=== PATIENT | female | born 1995 | race Caucasian/White ===

== ENCOUNTER 2018-01-21 20:57 | Observation (INO) | payer OTHER ==
[2018-01-21 21:52] VITALS: BP 133/78; PULSE 86
[2018-01-21 21:55] LABS: Amphetamine,Urine NEGATIVE (NEGATIVE); Barbiturate,Urine NEGATIVE (NEGATIVE); Benzodiazepine,Urine NEGATIVE (NEGATIVE); Cocaine,Urine NEGATIVE (NEGATIVE); Methadone,Urine NEGATIVE (NEGATIVE); Opiate,Urine NEGATIVE (NEGATIVE); PCP,Urine NEGATIVE (NEGATIVE); THC,Urine NEGATIVE (NEGATIVE)
== END 2018-01-21 23:00 | disposition home or self-care (01) ==
LOC: OB 20:57
PROVIDERS: ADMIT Family Medicine; ATTEND Family Medicine
DX: Z34.83 Encounter for supervision of other normal pregnancy, third trimester (principal)
CPT/HCPCS: 80307; G0378

== ENCOUNTER 2018-02-11 22:39 | Observation (INO) | payer OTHER ==
[2018-02-11 23:07] VITALS: BP 137/84; PULSE 83
== END 2018-02-12 00:15 | disposition home or self-care (01) ==
LOC: MED SURG 22:39
PROVIDERS: ADMIT Family Medicine; ATTEND Family Medicine
DX: Z34.83 Encounter for supervision of other normal pregnancy, third trimester (principal)
CPT/HCPCS: G0378 ×3

== ENCOUNTER 2019-02-09 17:44 | Observation (INO) | payer MEDICAID, OTHER ==
[2019-02-09] MEDS ORDERED: solu-MEDROL 125 MG IV ONE (18:00)
[2019-02-09] MEDS ORDERED: DUONEB 0.5-3 MG/3 ml Neb IH ONE ×2 (18:00→18:23)
--- NOTE | 2019-02-09 18:02 | ERPHSYRPT ---
- History of Present Illness Time Seen by Provider: 02/09/19 17:56 Source: patient Exam Limitations: physical impairment Patient Subjective Stated Complaint: Pt states "It started yesterday with sneezing and today it feels like my chest wants to cave in and I am short of breath." Triage Nursing Assessment: Pt presented via [facility] ambulance, pt alert and oriented X 3, skin pwd. Pt able to speak in clear full sentences. Physician History: 23-year-old white female arrives with complaint of shortness of breath wheezing since yesterday. Past medical history includes migraines, asthma, GERD, arthritis, anxiety, depression. Timing/Duration: yesterday Severity: moderate Associated Symptoms: shortness of breath, cough, No nausea, No vomiting, No abdominal pain, No heartburn, No diaphoresis, No chills, No chest pain, No fever , No headaches, No loss of appetite, No malaise, No rash, No syncope, No seizure , No weakness Allergies/Adverse Reactions: No Known Drug Allergies Allergy (Verified 01/21/18 21:53) Home Medications: Acetaminophen [Tylenol] 1 tab PO DAILY 01/21/18 [History] Albuterol Sulfate [Ventolin Hfa] 2 inhaler PO Q12H PRN PRN 01/21/18 [History] Diphenhydramine HCl [Benadryl Allergy] 1 tab PO DAILY PRN 01/21/18 [History] Hx Tetanus, Diphtheria Vaccination/Date Given: No Hx Influenza Vaccination/Date Given: Yes Hx Pneumococcal Vaccination/Date Given: No Immunizations Up to Date: Yes - Past Medical History Pertinent Past Medical History: Yes Neurological History: Migraines ENT History: No Pertinent History Cardiac History: No Pertinent History Respiratory History: Asthma Endocrine Medical History: No Pertinent History Musculoskeletal History: Arthritis GI Medical History: GERD History: No Pertinent History Psycho-Social History: Anxiety, Depression Female Reproductive Disorders: No Pertinent History - Past Surgical History Past Surgical History: No - Social History Smoking Status: Never smoker Exposure to second hand smoke: Yes Drug Use: none Patient Lives Alone: No - Female History Hx Last Menstrual Period: 01/20/2019 Hx Now: (unknown) - Nursing Vital Signs Nursing Vital Signs: Initial Vital Signs Temperature 98.3 F 02/09/19 17:46 Pulse Rate 132 H 02/09/19 17:46 Respiratory Rate 20 02/09/19 17:46 Blood Pressure 159/95 02/09/19 17:46 O2 Sat by Pulse Oximetry 92 L 02/09/19 17:46 Pain Scale Pain Intensity 9 - Physical Exam General Appearance: mild distress, alert Eye Exam: PERRL/EOMI, eyes nml inspection Ears, Nose, Throat Exam: normal ENT inspection, TMs normal, pharynx normal, moist mucous membranes Neck Exam: normal inspection, non-tender, supple, full range of motion Respiratory Exam: airway intact, diminished breath sounds, wheezing, No lungs clear Cardiovascular Exam: regular rate/rhythm, tachycardia, capillary refill <2 sec Gastrointestinal/Abdomen Exam: soft, normal bowel sounds, No tenderness, No mass Back Exam: normal inspection, normal range of motion, No CVA tenderness, No vertebral tenderness Extremity Exam: normal inspection, normal range of motion, pelvis stable Neurologic Exam: alert, oriented x 3, cooperative, drop wirer II-XII nml as tested, normal mood/affect, nml cerebellar function, nml station & gait, sensation nml, No motor deficits Skin Exam: normal color, warm, dry, No rash SpO2 Interpretation: normal (92%) SpO2: 92 - Course Nursing assessment & vital signs reviewed: Yes Ordered Tests: Active Orders 24 hr Category Date Time Status Up Ad Jasmin ROUTINE Activity 02/09/19 21:28 Active Call Admit Doctor for Orders ON ADMISSION Care 02/09/19 21:28 Active Code Status Order ROUTINE Care 02/09/19 21:28 Active IV Care Q6H Care 02/09/19 21:28 Active IV Insertion STAT Care 02/09/19 18:[address] in Observation ROUTINE Care 02/09/19 21:28 Active Telemetry q6h Care 02/09/19 21:28 Active Weight,Daily 0600 Care 02/09/19 21:28 Active Regular Diet Diet 02/09/19 Breakfast Active CBC W DIFF AM.LAB Lab 02/10/19 05:40 Completed CBC W DIFF Stat Lab 02/09/19 18:20 Completed CMP AM.LAB Lab 02/10/19 05:40 Completed CMP Stat Lab 02/09/19 18:20 Completed HCG QUALITATIVE,SERUM Stat Lab 02/09/19 18:20 Completed VENOUS BLOOD GAS Stat Lab 02/09/19 18:25 Completed Oxygen Nasal Cannula 2 lpm RT 02/09/19 21:28 Active Pulse Oximetry Q1H RT 02/09/19 21:28 Active Respiratory Therapy Assessment DAILY RT 02/09/19 18:30 Completed Respiratory Therapy Consult ROUTINE RT 02/09/19 21:28 Completed Medication Summary Generic Name Dose Route Start Last Admin Trade Name Aixa PRN Reason Stop Dose Admin Albuterol Sulfate 2.5 mg 02/09/19 21:28 02/10/19 04:56 Proventil 2.5 Mg/3 Ml Neb IH 03/11/19 21:27 2.5 mg Q4H PRN PRN Administration SHORTNESS OF BREATH/WHEEZING Ceftriaxone Sodium/Dextrose 1 g in 50 mls @ 100 mls/hr 02/10/19 22:00 Rocephin 1 Gm-D5w 50 Ml Bag IV 03/12/19 21:59 Q24H22 TEE Sodium Chloride 1,000 mls @ 100 mls/hr 02/09/19 21:28 02/10/19 05:45 Sodium Chloride 0.9% 1000 Ml IV 03/11/19 21:27 100 mls/hr .Q10H TEE Administration Azithromycin 500 mg in 250 mls @ 250 mls/hr 02/10/19 22:00 Zithromax 500 Mg/ 250 Ml Nacl Premix IV 03/12/19 21:59 Q24H22 TEE Methylprednisolone Sodium Succinate 80 mg 02/10/19 00:00 02/10/19 05:45 Solu-Medrol 125 Mg IV 03/12/19 00:00 80 mg Q6H TEE Administration Discontinued Medications Generic Name Dose Route Start Last Admin Trade Name Aixa PRN Reason Stop Dose Admin Albuterol/Ipratropium 3 ml 02/09/19 18:00 02/09/19 18:29 Duoneb 0.5-3 Mg/3 Ml Neb IH 02/09/19 18:01 3 ml STAT ONE Administration Albuterol/Ipratropium Confirm 02/09/19 18:23 Duoneb 0.5-3 Mg/3 Ml Neb Administered 02/09/19 18:24 Dose 3 ml IH .STK-MED ONE Ceftriaxone Sodium/Dextrose 1 g in 50 mls @ 100 mls/hr 02/09/19 19:25 19:49 Rocephin 1 Gm-D5w 50 Ml Bag IV 02/09/19 19:54 100 ml/hr STAT STA 100 mls/hr Administration Sodium Chloride 1,000 mls @ 100 mls/hr 02/09/19 19:30 02/09/19 19:45 Sodium Chloride 0.9% 1000 Ml IV 03/11/19 19:29 100 mls/hr .Q10H TEE Administration Ceftriaxone Sodium/Dextrose Confirm 02/09/19 19:42 Rocephin 1 Gm-D5w 50 Ml Bag Administered 02/09/19 19:43 Dose 1 g in 50 mls @ ud IV .STK-MED ONE Sodium Chloride Confirm 02/09/19 19:42 Sodium Chloride 0.9% 1000 Ml Administered 02/09/19 19:43 Dose 1,000 mls @ ud .ROUTE .STK-MED ONE Azithromycin 500 mg in 250 mls @ 250 mls/hr 02/10/19 10:00 Zithromax 500 Mg/ 250 Ml Nacl Premix IV 03/12/19 09:59 Q24H10 TEE Azithromycin 500 mg in 250 mls @ 250 mls/hr 02/09/19 22:14 02/09/19 22:28 Zithromax 500 Mg/ 250 Ml Nacl Premix IV 03/11/19 22:12 250 mls/hr Q24H10 TEE Administration Methylprednisolone Sodium Succinate 125 mg 02/09/19 18:00 02/09/19 18:17 Solu-Medrol 125 Mg IV 02/09/19 18:01 125 mg STAT ONE Administration Methylprednisolone Sodium Succinate Confirm 02/09/19 18:17 Solu-Medrol 125 Mg Administered 02/09/19 18:18 Dose 125 mg .ROUTE .STK-MED ONE Methylprednisolone Sodium Succinate 80 mg 02/09/19 21:28 Solu-Medrol 125 Mg IV 03/11/19 21:27 Q6H TEE Methylprednisolone Sodium Succinate 80 mg 02/09/19 23:55 Solu-Medrol 125 Mg IV 03/11/19 23:54 Q6H TEE Lab/Rad Data: Laboratory Result Diagrams 02/09/19 18:20 02/09/19 18:20 Laboratory Results 02/09/19 02/09/19 02/09/19 Range/Units 18:25 18:20 18:20 WBC (4.0-10.5) K/mm3 RBC (4.1-5.4) M/mm3 Hgb (12.0-16.0) gm/dl Hct (35-47) % MCV (78-100) fl MCH (26-32) pg MCHC (32-36) g/dl RDW (11.5-14.0) % Plt Count (150-450) K/mm3 MPV (6-9.5) fl Gran % (36.0-66.0) % Eos # (Auto) (0-0.5) Absolute Lymphs (auto) (1.0-4.6) Absolute Monos (auto) (0.0-1.3) Lymphocytes % (24.0-44.0) % Monocytes % (0.0-12.0) % Eosinophils % (0.00-5.0) % Basophils % (0.0-0.4) % Absolute Granulocytes (1.4-6.9) Basophils # (0-0.4) pO2/FiO2 Ratio 21.0 % VBG pH 7.40 (7.32-7.42) VBG pCO2 at Pat Temp 42 (42-55) mm/Hg VBG pO2 at Pat Temp 33 (25-40) mm/Hg VBG HCO3 26.0 (22-28) meq/L VBG O2 Sat ([place]) 64.0 L (95-100) VBG Base Excess 0.9 (-2.0-2.0) VBG Hemoglobin 15.7 VBG Carboxyhemoglobin 2.7 (0.0-6.9) % T HGB POC Potassium 4.3 (3.5-5.1) Sodium 141 (137-145) mmol/L Potassium 4.4 (3.5-5.1) mmol/L Chloride 103 (98-107) mmol/L Carbon Dioxide 25 (22-30) mmol/L Anion Gap 16.7 H (5-15) MEQ/L BUN 8 (7-17) mg/dL Creatinine 0.59 (0.52-1.04) mg/dL Estimated GFR > 60.0 ML/MIN Glucose 101 (74-106) mg/dL Calcium 9.6 (8.4-10.2) mg/dL Total Bilirubin 0.30 (0.2-1.3) mg/dL AST 27 (14-36) U/L ALT 35 (0-35) U/L Alkaline Phosphatase 90 (38-126) U/L Serum Total Protein 8.4 H (6.3-8.2) g/dL Albumin 4.4 (3.5-5.0) g/dL Serum , Qual POSITIVE (Negative) 02/09/19 Range/Units 18:20 WBC 13.6 H (4.0-10.5) K/mm3 RBC 5.02 (4.1-5.4) M/mm3 Hgb 15.5 (12.0-16.0) gm/dl Hct 45.5 (35-47) % MCV 90.6 (78-100) fl MCH 30.9 (26-32) pg MCHC 34.1 (32-36) g/dl RDW 13.6 (11.5-14.0) % Plt Count 300 (150-450) K/mm3 MPV 10.0 H (6-9.5) fl Gran % 72.2 H (36.0-66.0) % Eos # (Auto) 0.55 H (0-0.5) Absolute Lymphs (auto) 2.16 (1.0-4.6) Absolute Monos (auto) 1.04 (0.0-1.3) Lymphocytes % 15.9 L (24.0-44.0) % Monocytes % 7.7 (0.0-12.0) % Eosinophils % 4.1 (0.00-5.0) % Basophils % 0.1 (0.0-0.4) % Absolute Granulocytes 9.81 H (1.4-6.9) Basophils # 0.02 (0-0.4) pO2/FiO2 Ratio % VBG pH (7.32-7.42) VBG pCO2 at Pat Temp (42-55) mm/Hg VBG pO2 at Pat Temp (25-40) mm/Hg VBG HCO3 (22-28) meq/L VBG O2 Sat ([place]) (95-100) VBG Base Excess (-2.0-2.0) VBG Hemoglobin VBG Carboxyhemoglobin (0.0-6.9) % T HGB POC Potassium (3.5-5.1) Sodium (137-145) mmol/L Potassium (3.5-5.1) mmol/L Chloride (98-107) mmol/L Carbon Dioxide (22-30) mmol/L Anion Gap (5-15) MEQ/L BUN (7-17) mg/dL Creatinine (0.52-1.04) mg/dL Estimated GFR ML/MIN Glucose (74-106) mg/dL Calcium (8.4-10.2) mg/dL Total Bilirubin (0.2-1.3) mg/dL AST (14-36) U/L ALT (0-35) U/L Alkaline Phosphatase (38-126) U/L Serum Total Protein (6.3-8.2) g/dL Albumin (3.5-5.0) g/dL Serum , Qual (Negative) - Progress Progress: improved Progress Note: 02/09/19 19:27 Patient is feeling better after DuoNeb and IV Solu-Medrol. Patient with a positive test had her last period about a month ago. Unfortunately, patient's O2 saturations around 92% on 2 L of oxygen. Chest x-ray was deferred secondary to the . I discussed patient's case with Dr. Man will place patient on observation telemetry. Provide IV antibiotics, Solu-Medrol, albuterol treatments. - Departure Departure Disposition: Observation Clinical Impression: Shortness of breath Asthma with exacerbation Qualifiers: Asthma severity: moderate Asthma persistence: unspecified Qualified Code(s): J45.901 - Unspecified asthma with (acute) exacerbation Condition: Fair Critical Care Time: No
[2019-02-09] MEDS ORDERED: solu-MEDROL 125 MG ONE (18:17)
[2019-02-09 18:25] LABS: BASOPHIL % 0.1 % (0.0-0.4); Basophil (Absolute #) 0.02 (0-0.4); Eosinophil % 4.1 % (0.00-5.0); Eosinophil (Absolute #) 0.55 (0-0.5); Granulocyte Absolute (ANC) 9.81 (1.4-6.9); Granulocytes % 72.2 % (36.0-66.0); Hematocrit 45.5 % (35-47); Hemoglobin 15.5 gm/dl (12.0-16.0); Lymphocyte (Absolute #) 2.16 (1.0-4.6); Lymphocytes % 15.9 % (24.0-44.0); Mean Cell Volume 90.6 fl (78-100); Mean Corpuscular Hemoglobin 30.9 pg (26-32); Mean Corpuscular Hgb Concent. 34.1 g/dl (32-36); Monocyte (Absolute #) 1.04 (0.0-1.3); Monocytes % 7.7 % (0.0-12.0); Platelet Count 300 K/mm3 (150-450); Red Blood Count 5.02 M/mm3 (4.1-5.4); Red Cell Distribution Width 13.6 % (11.5-14.0); White Blood Count 13.6 K/mm3 (4.0-10.5)
[2019-02-09 18:30] LABS: VBG BASE EXCESS 0.9 (-2.0-2.0); VBG CARBOXYHEMOGLOBIN 2.7 % T HGB (0.0-6.9); VBG HEMOGLOBIN 15.7; VBG POTASSIUM 4.3 (3.5-5.1); VBG pH 7.4 (7.32-7.42)
[2019-02-09 18:44] LABS: ALBUMIN 4.4 g/dL (3.5-5.0); ALKALINE PHOSPHATASE 90 U/L (38-126); ANION GAP 16.7 MEQ/L (5-15); BLOOD UREA NITROGEN 8 mg/dL (7-17); CHLORIDE 103 mmol/L (98-107); Calcium 9.6 mg/dL (8.4-10.2); Carbon Dioxide 25 mmol/L (22-30); Creatinine 1 0.59 mg/dL (0.52-1.04); Glucose 101 mg/dL (74-106); Potassium 4.4 mmol/L (3.5-5.1); SGOT/AST 27 U/L (14-36); SGPT/ALT 35 U/L (0-35); SODIUM 141 mmol/L (137-145); Total Protein 8.4 g/dL (6.3-8.2)
[2019-02-09] MEDS ORDERED: ROCEPHIN 1 Gm-D5w 50 ml Bag** 1 G/50 ML IVPB IV STA (19:25)
[2019-02-09] MEDS ORDERED: Sodium Chloride 0.9% 1000 ML 1,000 ML IV SCH ×2 (19:30→21:28)
[2019-02-09] MEDS ORDERED: ROCEPHIN 1 Gm-D5w 50 ml Bag** 1 G/50 ML IVPB IV ONE (19:42)
[2019-02-09] MEDS ORDERED: Sodium Chloride 0.9% 1000 ML 1,000 ML ONE (19:42)
[2019-02-09] MEDS ORDERED: solu-MEDROL 125 MG IV SCH ×2 (21:28→23:55)
[2019-02-09] MEDS ORDERED: Zithromax 500 MG/ 250 ML NaCl Premix 500 MG/250 ML IVPB IV SCH (22:14)
[2019-02-09] MEDS: PROVENTIL 2.5 MG/3 ML NEB IH PRN ×2 (23:07→23:47)
[2019-02-09] MEDS: solu-MEDROL 125 MG IV SCH (23:49)
[2019-02-10] MEDS: PROVENTIL 2.5 MG/3 ML NEB IH PRN (04:56)
[2019-02-10] MEDS: solu-MEDROL 125 MG IV SCH ×2 (05:45→11:45)
[2019-02-10 05:58] LABS: Basophil (Absolute #) 0.01 (0-0.4); Eosinophil (Absolute #) 0.01 (0-0.5); Granulocyte Absolute (ANC) 19.15 (1.4-6.9); Granulocytes % 92.9 % (36.0-66.0); Hemoglobin 14.6 gm/dl (12.0-16.0); Lymphocyte (Absolute #) 1.17 (1.0-4.6); Lymphocytes % 5.7 % (24.0-44.0); Mean Cell Volume 90.7 fl (78-100); Mean Corpuscular Hemoglobin 30.8 pg (26-32); Monocyte (Absolute #) 0.28 (0.0-1.3); Monocytes % 1.4 % (0.0-12.0); Platelet Count 326 K/mm3 (150-450); Red Blood Count 4.74 M/mm3 (4.1-5.4); Red Cell Distribution Width 13.6 % (11.5-14.0); White Blood Count 20.6 K/mm3 (4.0-10.5)
[2019-02-10 06:23] LABS: ALBUMIN 4.2 g/dL (3.5-5.0); ALKALINE PHOSPHATASE 86 U/L (38-126); ANION GAP 17.3 MEQ/L (5-15); BLOOD UREA NITROGEN 9 mg/dL (7-17); CHLORIDE 108 mmol/L (98-107); Calcium 9.5 mg/dL (8.4-10.2); Carbon Dioxide 19 mmol/L (22-30); Creatinine 1 0.46 mg/dL (0.52-1.04); Glucose 177 mg/dL (74-106); Potassium 4.3 mmol/L (3.5-5.1); SGOT/AST 28 U/L (14-36); SGPT/ALT 39 U/L (0-35); SODIUM 139 mmol/L (137-145)
[2019-02-10] MEDS ORDERED: Zithromax 500 MG/ 250 ML NaCl Premix 500 MG/250 ML IVPB IV SCH ×2 (10:00→22:00)
[2019-02-10] MEDS ORDERED: Ventolin Hfa MDI IH PRN (10:15)
[2019-02-10] MEDS ORDERED: [UNRECOGNIZED DRUG - REMARK] PO PRN (10:15)
[2019-02-10] MEDS ORDERED: BENADRYL 25 MG CAPSULE PO PRN (10:17)
[2019-02-10] MEDS ORDERED: PROVENTIL COMMON CANISTER IH PRN (10:18)
[2019-02-10] MEDS ORDERED: Sodium Chloride 3 ML UD NEBULES IH SCH (11:00)
[2019-02-10] MEDS ORDERED: PROVENTIL 2.5 MG/3 ML NEB IH SCH (11:00)
[2019-02-10] MEDS ORDERED: Xopenex 1.25 MG/0.5 ML UD NEBULE IH SCH (11:00)
[2019-02-10] MEDS ORDERED: Sodium Chloride 3 ML UD NEBULES IH ONE (11:15)
[2019-02-10] MEDS ORDERED: Xopenex 1.25 MG/0.5 ML UD NEBULE IH ONE (11:15)
[2019-02-10 11:48] VITALS: BP 121/59; PULSE 127; O2SAT 95
--- NOTE | 2019-02-10 13:00 | PCM.HP ---
History of Present Illness - Chief Complaint Chief Complaint: c/o shortness of breath for 2-3 days History of Present Illness: is a 23 year old female.23-year-old white female arrives with complaint of shortness of breath wheezing since yesterday. - Review of Systems Constitutional: No Fever, No Chills Eyes: No Symptoms Ears, Nose, & Throat: No Symptoms Respiratory: No Cough, No Short Of Breath Cardiac: No Chest Pain, No Edema, No Syncope Abdominal/Gastrointestinal: No Abdominal Pain, No Nausea, No Vomiting, No Diarrhea Genitourinary Symptoms: No Dysuria Musculoskeletal: No Back Pain, No Neck Pain Skin: No Rash Neurological: No Dizziness, No Focal Weakness, No Sensory Changes Psychological: No Symptoms Endocrine: No Symptoms Hematologic/Lymphatic: No Symptoms Immunological/Allergic: No Symptoms Medications & Allergies Home Medications: Home Medication List Acetaminophen [Tylenol] 1 tab PO DAILY 01/21/18 [History Confirmed 02/09/19] Albuterol Sulfate [Ventolin Hfa] 2 inhaler PO Q12H PRN PRN 01/21/18 [History Confirmed 02/09/19] Diphenhydramine HCl [Benadryl Allergy] 1 tab PO DAILY PRN 01/21/18 [History Confirmed 02/09/19] Allergies/Adverse Reactions: Allergies Allergy/AdvReac Type Severity Reaction Status Date / Time No Known Drug Allergies Allergy Verified 01/21/18 21:53 - Past Medical History Past Medical History: Yes Neurological History: Migraines ENT History: No Pertinent History Cardiac History: No Pertinent History Respiratory History: Asthma Endocrine Medical History: No Pertinent History Musculoskelatal History: Arthritis GI Medical History: GERD History: No Pertinent History Pyscho-Social History: Anxiety, Depression Reproductive Disorders: No Pertinent History - Female History Hx Last Menstrual Period: 01/20/2019 Are you now?: (unknown) - Past Surgical History Past Surgical History: No - Social History Smoking Status: Never smoker Exposure to second hand smoke: Yes Alcohol: None Drug Use: none - Physical Exam Vital Signs: Vital Signs - 24 hr Temp Pulse Resp BP Pulse Ox 02/10/19 11:47 98.4 F 127 H 18 121/59 95 02/10/19 11:20 120 H 18 93 L 02/10/19 08:29 118 H 16 93 L 02/10/19 08:00 98.3 F 122 H 18 131/69 93 L 02/10/19 07:15 120 H 18 92 L 02/10/19 07:05 92 L 02/10/19 06:32 90 L 02/10/19 05:54 90 L 02/10/19 05:22 91 L 02/10/19 05:00 92 L 02/10/19 04:57 122 H 18 90 L 02/10/19 04:00 98.2 F 128 H 18 131/68 90 L 02/10/19 02:47 89 L 02/10/19 01:40 92 L 02/10/19 01:00 88 L 02/10/19 00:00 98.2 F 128 H 19 131/72 92 L 02/09/19 23:47 119 H 20 91 L 02/09/19 23:43 88 L 02/09/19 23:09 128 H 19 92 L 02/09/19 22:55 88 L 02/09/19 21:35 98.3 F 118 H 20 152/92 93 L 02/09/19 20:43 118 H 20 152/92 93 L 02/09/19 19:40 114 H 18 152/92 93 L 02/09/19 18:50 110 H 18 164/82 92 L 02/09/19 18:44 122 H 22 144/89 93 L 02/09/19 18:30 126 H 23 90 L 02/09/19 17:46 98.3 F 132 H 20 159/95 92 L Oxygen-Last 24 hours O2 Percentage 3 Liters = 32% O2 Percentage 3 Liters = 32% O2 Percentage 4 Liters = 36% O2 Percentage 3 Liters = 32% O2 Percentage 2 Liters = 28% O2 Percentage 2 Liters = 28% Oxygen Flowrate (L/min)-RT 3 Oxygen Flowrate (L/min)-RT 3 General Appearance: no apparent distress, alert Neurologic Exam: alert, oriented x 3, cooperative, normal mood/affect, nml cerebellar function, nml station & gait, sensation nml, No motor deficits Eye Exam: PERRL/EOMI, eyes nml inspection Ears, Nose, Throat Exam: normal ENT inspection, TMs normal, pharynx normal, moist mucous membranes Neck Exam: normal inspection, non-tender, supple, full range of motion Respiratory Exam: normal breath sounds, lungs clear, No respiratory distress Cardiovascular Exam: regular rate/rhythm, normal heart sounds, normal peripheral pulses Gastrointestinal/Abdomen Exam: soft, normal bowel sounds, No tenderness, No mass Back Exam: normal inspection, normal range of motion, No CVA tenderness, No vertebral tenderness Extremity Exam: normal inspection, normal range of motion, pelvis stable Skin Exam: normal color, warm, dry, No rash Lymphatic Exam: No adenopathy Results - Labs Lab/Micro Results: Lab Results-Last 24 Hours 02/09/19 02/09/19 02/09/19 Range/Units 18:20 18:20 18:20 WBC 13.6 H (4.0-10.5) K/mm3 RBC 5.02 (4.1-5.4) M/mm3 Hgb 15.5 (12.0-16.0) gm/dl Hct 45.5 (35-47) % MCV 90.6 (78-100) fl MCH 30.9 (26-32) pg MCHC 34.1 (32-36) g/dl RDW 13.6 (11.5-14.0) % Plt Count 300 (150-450) K/mm3 MPV 10.0 H (6-9.5) fl Gran % 72.2 H (36.0-66.0) % Eos # (Auto) 0.55 H (0-0.5) Absolute Lymphs (auto) 2.16 (1.0-4.6) Absolute Monos (auto) 1.04 (0.0-1.3) Lymphocytes % 15.9 L (24.0-44.0) % Monocytes % 7.7 (0.0-12.0) % Eosinophils % 4.1 (0.00-5.0) % Basophils % 0.1 (0.0-0.4) % Absolute Granulocytes 9.81 H (1.4-6.9) Basophils # 0.02 (0-0.4) pO2/FiO2 Ratio % VBG pH (7.32-7.42) VBG pCO2 at Pat Temp (42-55) mm/Hg VBG pO2 at Pat Temp (25-40) mm/Hg VBG HCO3 (22-28) meq/L VBG O2 Sat ([place]) (95-100) VBG Base Excess (-2.0-2.0) VBG Hemoglobin VBG Carboxyhemoglobin (0.0-6.9) % T HGB POC Potassium (3.5-5.1) Sodium 141 (137-145) mmol/L Potassium 4.4 (3.5-5.1) mmol/L Chloride 103 (98-107) mmol/L Carbon Dioxide 25 (22-30) mmol/L Anion Gap 16.7 H (5-15) MEQ/L BUN 8 (7-17) mg/dL Creatinine 0.59 (0.52-1.04) mg/dL Estimated GFR > 60.0 ML/MIN Glucose 101 (74-106) mg/dL Calcium 9.6 (8.4-10.2) mg/dL Total Bilirubin 0.30 (0.2-1.3) mg/dL AST 27 (14-36) U/L ALT 35 (0-35) U/L Alkaline Phosphatase 90 (38-126) U/L Serum Total Protein 8.4 H (6.3-8.2) g/dL Albumin 4.4 (3.5-5.0) g/dL Serum , Qual POSITIVE (Negative) 02/09/19 02/10/19 02/10/19 Range/Units 18:25 05:40 05:40 WBC 20.6 H (4.0-10.5) K/mm3 RBC 4.74 (4.1-5.4) M/mm3 Hgb 14.6 (12.0-16.0) gm/dl Hct 43.0 (35-47) % MCV 90.7 (78-100) fl MCH 30.8 (26-32) pg MCHC 34.0 (32-36) g/dl RDW 13.6 (11.5-14.0) % Plt Count 326 (150-450) K/mm3 MPV 10.0 H (6-9.5) fl Gran % 92.9 H (36.0-66.0) % Eos # (Auto) 0.01 (0-0.5) Absolute Lymphs (auto) 1.17 (1.0-4.6) Absolute Monos (auto) 0.28 (0.0-1.3) Lymphocytes % 5.7 L (24.0-44.0) % Monocytes % 1.4 (0.0-12.0) % Eosinophils % 0.0 (0.00-5.0) % Basophils % 0.0 (0.0-0.4) % Absolute Granulocytes 19.15 H (1.4-6.9) Basophils # 0.01 (0-0.4) pO2/FiO2 Ratio 21.0 % VBG pH 7.40 (7.32-7.42) VBG pCO2 at Pat Temp 42 (42-55) mm/Hg VBG pO2 at Pat Temp 33 (25-40) mm/Hg VBG HCO3 26.0 (22-28) meq/L VBG O2 Sat ([place]) 64.0 L (95-100) VBG Base Excess 0.9 (-2.0-2.0) VBG Hemoglobin 15.7 VBG Carboxyhemoglobin 2.7 (0.0-6.9) % T HGB POC Potassium 4.3 (3.5-5.1) Sodium 139 (137-145) mmol/L Potassium 4.3 (3.5-5.1) mmol/L Chloride 108 H (98-107) mmol/L Carbon Dioxide 19 L (22-30) mmol/L Anion Gap 17.3 H (5-15) MEQ/L BUN 9 (7-17) mg/dL Creatinine 0.46 L (0.52-1.04) mg/dL Estimated GFR > 60.0 ML/MIN Glucose 177 H (74-106) mg/dL Calcium 9.5 (8.4-10.2) mg/dL Total Bilirubin 0.30 (0.2-1.3) mg/dL AST 28 (14-36) U/L ALT 39 H (0-35) U/L Alkaline Phosphatase 86 (38-126) U/L Serum Total Protein 8.0 (6.3-8.2) g/dL Albumin 4.2 (3.5-5.0) g/dL Serum , Qual (Negative) - Other Procedures and Tests Respiratory Therapy 02/09/19 21:28 Oxygen Nasal Cannula 2 lpm 02/09/19 23:06 Respiratory Therapy Assessment DAILY 02/10/19 07:00 Peak Expiratory Flow Rate ONCE 02/10/19 07:47 Flutter Therapy UD Assessment/Plan (1) Current Visit: Yes Status: Acute Qualifiers: Weeks of gestation: less than 8 weeks Qualified Code(s): Z3A.01 - Less than 8 weeks gestation of Code(s): Z34.90 - ENCNTR FOR SUPRVSN OF NORMAL , UNSP, UNSP TRIMESTER (2) Asthma with exacerbation Current Visit: Yes Status: Acute Qualifiers: Asthma severity: moderate Asthma persistence: unspecified Qualified Code( s): J45.901 - Unspecified asthma with (acute) exacerbation (3) Shortness of breath Current Visit: Yes Status: Acute Code(s): R06.02 - SHORTNESS OF BREATH
--- NOTE | 2019-02-10 13:14 | PCM.DS ---
Discharge Summary Date of Admission: 02/09/19 21:08 Admitting Physician: TRU BRYANT Primary Care Provider: NO FAMILY DOCTOR Allergies Allergies No Known Drug Allergies Allergy (Verified 01/21/18 21:53) Hospital Summary - Hospital Course Hospital Course: Chief Complaint Diagnosis c/o shortness of breath for 2-3 days Allergies Allergy/AdvReac Type Severity Reaction Status Date / Time No Known Drug Allergies Allergy Verified 01/21/18 21:53 Vital Signs (Last 24 hours) Temp Pulse Resp BP Pulse Ox 02/10/19 11:47 98.4 F 127 H 18 121/59 95 02/10/19 11:20 120 H 18 93 L 02/10/19 08:29 118 H 16 93 L 02/10/19 08:00 98.3 F 122 H 18 131/69 93 L 02/10/19 07:15 120 H 18 92 L 02/10/19 07:05 92 L 02/10/19 06:32 90 L 02/10/19 05:54 90 L 02/10/19 05:22 91 L 02/10/19 05:00 92 L 02/10/19 04:57 122 H 18 90 L 02/10/19 04:00 98.2 F 128 H 18 131/68 90 L 02/10/19 02:47 89 L 02/10/19 01:40 92 L 02/10/19 01:00 88 L 02/10/19 00:00 98.2 F 128 H 19 131/72 92 L 02/09/19 23:47 119 H 20 91 L 02/09/19 23:43 88 L 02/09/19 23:09 128 H 19 92 L 02/09/19 22:55 88 L 02/09/19 21:35 98.3 F 118 H 20 152/92 93 L 02/09/19 20:43 118 H 20 152/92 93 L 02/09/19 19:40 114 H 18 152/92 93 L 02/09/19 18:50 110 H 18 164/82 92 L 02/09/19 18:44 122 H 22 144/89 93 L 02/09/19 18:30 126 H 23 90 L 02/09/19 17:46 98.3 F 132 H 20 159/95 92 L Current Medications Generic Name Dose Route Start Last Admin Trade Name Freq PRN Reason Stop Dose Admin Acetaminophen 325 mg 02/11/19 10:00 Tylenol 325 Mg PO 03/13/19 09:59 DAILY TEE Albuterol Sulfate 2.5 mg 02/09/19 21:28 02/10/19 04:56 Proventil 2.5 Mg/3 Ml Neb IH 03/11/19 21:27 2.5 mg Q4H PRN PRN Administration SHORTNESS OF BREATH/WHEEZING Albuterol Sulfate 2 puff 02/10/19 10:18 Proventil Common Canister IH 03/12/19 10:17 Q12H PRN PRN ASTHMA Diphenhydramine HCl 25 mg 02/10/19 10:17 Benadryl 25 Mg Capsule PO 03/12/19 10:16 DAILY PRN PRN ALLERGIES Ceftriaxone Sodium/Dextrose 1 g in 50 mls @ 100 mls/hr 02/10/19 22:00 Rocephin 1 Gm-D5w 50 Ml Bag IV 03/12/19 21:59 Q24H22 TEE Azithromycin 500 mg in 250 mls @ 250 mls/hr 02/10/19 22:00 Zithromax 500 Mg/ 250 Ml Nacl Premix IV 03/12/19 21:59 Q24H22 TEE Levalbuterol HCl 1.25 mg 02/10/19 11:00 02/10/19 11:15 Xopenex 1.25 Mg/0.5 Ml Ud Nebule IH 03/12/19 10:59 1.25 mg Q4HRT TEE Administration Methylprednisolone Sodium Succinate 80 mg 02/10/19 00:00 02/10/19 11:45 Solu-Medrol 125 Mg IV 03/12/19 00:00 80 mg Q6H TEE Administration Sodium Chloride 3 ml 02/10/19 11:00 02/10/19 11:15 Sodium Chloride 3 Ml Ud Nebules IH 03/12/19 10:59 3 ml Q4HRT TEE Administration Discontinued Medications Generic Name Dose Route Start Last Admin Trade Name Freq PRN Reason Stop Dose Admin Albuterol Sulfate 2.5 mg 02/10/19 11:00 02/10/19 08:27 Proventil 2.5 Mg/3 Ml Neb IH 03/12/19 10:59 2.5 mg Q4HRT TEE Administration Albuterol/Ipratropium 3 ml 02/09/19 18:00 02/09/19 18:29 Duoneb 0.5-3 Mg/3 Ml Neb IH 02/09/19 18:01 3 ml STAT ONE Administration Albuterol/Ipratropium Confirm 02/09/19 18:23 Duoneb 0.5-3 Mg/3 Ml Neb Administered 02/09/19 18:24 Dose 3 ml IH .STK-MED ONE Ceftriaxone Sodium/Dextrose 1 g in 50 mls @ 100 mls/hr 02/09/19 19:25 19:49 Rocephin 1 Gm-D5w 50 Ml Bag IV 02/09/19 19:54 100 ml/hr STAT STA 100 mls/hr Administration Sodium Chloride 1,000 mls @ 100 mls/hr 02/09/19 19:30 02/09/19 19:45 Sodium Chloride 0.9% 1000 Ml IV 03/11/19 19:29 100 mls/hr .Q10H TEE Administration Ceftriaxone Sodium/Dextrose Confirm 02/09/19 19:42 Rocephin 1 Gm-D5w 50 Ml Bag Administered 02/09/19 19:43 Dose 1 g in 50 mls @ ud IV .STK-MED ONE Sodium Chloride Confirm 02/09/19 19:42 Sodium Chloride 0.9% 1000 Ml Administered 02/09/19 19:43 Dose 1,000 mls @ ud .ROUTE .STK-MED ONE Azithromycin 500 mg in 250 mls @ 250 mls/hr 02/10/19 10:00 Zithromax 500 Mg/ 250 Ml Nacl Premix IV 03/12/19 09:59 Q24H10 TEE Sodium Chloride 1,000 mls @ 100 mls/hr 02/09/19 21:28 02/10/19 05:45 Sodium Chloride 0.9% 1000 Ml IV 03/11/19 21:27 100 mls/hr .Q10H TEE Administration Azithromycin 500 mg in 250 mls @ 250 mls/hr 02/09/19 22:14 02/09/19 22:28 Zithromax 500 Mg/ 250 Ml Nacl Premix IV 03/11/19 22:12 250 mls/hr Q24H10 TEE Administration Levalbuterol HCl Confirm 02/10/19 11:15 Xopenex 1.25 Mg/0.5 Ml Ud Nebule Administered 02/10/19 11:16 Dose 1.25 mg IH .STK-MED ONE Methylprednisolone Sodium Succinate 125 mg 02/09/19 18:00 02/09/19 18:17 Solu-Medrol 125 Mg IV 02/09/19 18:01 125 mg STAT ONE Administration Methylprednisolone Sodium Succinate Confirm 02/09/19 18:17 Solu-Medrol 125 Mg Administered 02/09/19 18:18 Dose 125 mg .ROUTE .STK-MED ONE Methylprednisolone Sodium Succinate 80 mg 02/09/19 21:28 Solu-Medrol 125 Mg IV 03/11/19 21:27 Q6H TEE Methylprednisolone Sodium Succinate 80 mg 02/09/19 23:55 Solu-Medrol 125 Mg IV 03/11/19 23:54 Q6H TEE Sodium Chloride Confirm 02/10/19 11:15 Sodium Chloride 3 Ml Ud Nebules Administered 02/10/19 11:16 Dose 3 ml IH .STK-MED ONE Intake & Output (Last 24 hours) 02/08/19 02/09/19 02/10/19 02/11/19 11:59 11:59 11:59 11:59 Intake Total 1928 Output Total 800 Balance 1128 Weight 87.9 kg Microbiology Results (Last 24 hours) 02/10/19 09:25 Sputum - Expectorant Gram Stain - Pending 02/10/19 09:25 Sputum - Expectorant Sputum Culture - Pending Laboratory Results (Last 24 hours) 02/10/19 02/10/19 02/09/19 05:40 05:40 18:25 WBC 20.6 H RBC 4.74 Hgb 14.6 Hct 43.0 MCV 90.7 MCH 30.8 MCHC 34.0 RDW 13.6 Plt Count 326 MPV 10.0 H Gran % 92.9 H Eos # (Auto) 0.01 Absolute Lymphs (auto) 1.17 Absolute Monos (auto) 0.28 Lymphocytes % 5.7 L Monocytes % 1.4 Eosinophils % 0.0 Basophils % 0.0 Absolute Granulocytes 19.15 H Basophils # 0.01 pO2/FiO2 Ratio 21.0 VBG pH 7.40 VBG pCO2 at Pat Temp 42 VBG pO2 at Pat Temp 33 VBG HCO3 26.0 VBG O2 Sat ([place]) 64.0 L VBG Base Excess 0.9 VBG Hemoglobin 15.7 VBG Carboxyhemoglobin 2.7 POC Potassium 4.3 Sodium 139 Potassium 4.3 Chloride 108 H Carbon Dioxide 19 L Anion Gap 17.3 H BUN 9 Creatinine 0.46 L Estimated GFR > 60.0 Glucose 177 H Calcium 9.5 Total Bilirubin 0.30 AST 28 ALT 39 H Alkaline Phosphatase 86 Serum Total Protein 8.0 Albumin 4.2 Serum , Qual 02/09/19 02/09/19 02/09/19 18:20 18:20 18:20 WBC 13.6 H RBC 5.02 Hgb 15.5 Hct 45.5 MCV 90.6 MCH 30.9 MCHC 34.1 RDW 13.6 Plt Count 300 MPV 10.0 H Gran % 72.2 H Eos # (Auto) 0.55 H Absolute Lymphs (auto) 2.16 Absolute Monos (auto) 1.04 Lymphocytes % 15.9 L Monocytes % 7.7 Eosinophils % 4.1 Basophils % 0.1 Absolute Granulocytes 9.81 H Basophils # 0.02 pO2/FiO2 Ratio VBG pH VBG pCO2 at Pat Temp VBG pO2 at Pat Temp VBG HCO3 VBG O2 Sat ([place]) VBG Base Excess VBG Hemoglobin VBG Carboxyhemoglobin POC Potassium Sodium 141 Potassium 4.4 Chloride 103 Carbon Dioxide 25 Anion Gap 16.7 H BUN 8 Creatinine 0.59 Estimated GFR > 60.0 Glucose 101 Calcium 9.6 Total Bilirubin 0.30 AST 27 ALT 35 Alkaline Phosphatase 90 Serum Total Protein 8.4 H Albumin 4.4 Serum , Qual POSITIVE Orders (Last 24 hours) Category Date Time Status Up Ad Jasmin ROUTINE Activity 02/09/19 21:28 Active Call Admit Doctor for Orders ON ADMISSION Care 02/09/19 21:28 Active Code Status Order ROUTINE Care 02/09/19 21:28 Active IV Care Q6H Care 02/09/19 21:28 Active IV Insertion STAT Care 02/09/19 18:[address] in Observation ROUTINE Care 02/09/19 21:28 Active Telemetry q6h Care 02/09/19 21:28 Active Weight,Daily 0600 Care 02/09/19 21:28 Active CBC W DIFF AM.LAB Lab 02/10/19 05:40 Completed CBC W DIFF Stat Lab 02/09/19 18:20 Completed CMP AM.LAB Lab 02/10/19 05:40 Completed CMP Stat Lab 02/09/19 18:20 Completed HCG QUALITATIVE,SERUM Stat Lab 02/09/19 18:20 Completed Sputum Culture [CULTURE,SPUTUM] Routine Lab 02/10/19 09:25 Received VENOUS BLOOD GAS Stat Lab 02/09/19 18:25 Completed Acetaminophen 325 mg [Tylenol 325 mg] Med 02/11/19 10:00 Active 325 mg PO DAILY Albuterol 2.5 mg/3 ml Neb [Proventil 2.5 mg/3 ml Neb Med 02/09/19 21:28 Active ] 2.5 mg IH Q4H PRN PRN Albuterol 2.5 mg/3 ml Neb [Proventil 2.5 mg/3 ml Neb Med 02/10/19 11:00 Discontinued ] 2.5 mg IH Q4HRT Albuterol Common Canister [Proventil Common Canister Med 02/10/19 10:18 Active ] 2 puff IH Q12H PRN PRN Albuterol/Ipratropium 3ml Neb* [DUONEB 0.5-3 MG/3 ml Med 02/09/19 18:23 Discontinued Neb] 3 ml IH .STK-MED ONE Albuterol/Ipratropium 3ml Neb* [DUONEB 0.5-3 MG/3 ml Med 02/09/19 18:00 Discontinued Neb] 3 ml IH STAT ONE Azithromycin 500 mg/250 ml [Zithromax 500 MG/ 250 ML Med 02/09/19 22:14 Discontinued NaCl Premix] 500 mg in 250 ml IV Q24H10 Azithromycin 500 mg/250 ml [Zithromax 500 MG/ 250 ML Med 02/10/19 10:00 Discontinued NaCl Premix] 500 mg in 250 ml IV Q24H10 Azithromycin 500 mg/250 ml [Zithromax 500 MG/ 250 ML Med 02/10/19 22:00 Active NaCl Premix] 500 mg in 250 ml IV Q24H22 Ceftriaxone 1 GM/50 ML PREMIX* [ROCEPHIN 1 Gm-D5w 50 ml Med 02/10/19 22:00 Active Bag] 1 g in 50 ml IV Q24H22 Ceftriaxone 1 GM/50 ML PREMIX* [ROCEPHIN 1 Gm-D5w 50 ml Med 02/09/19 19:25 Discontinued Bag] 1 g in 50 ml IV STAT Ceftriaxone 1 GM/50 ML PREMIX* [ROCEPHIN 1 Gm-D5w 50 ml Med 02/09/19 19:42 Discontinued Bag] 1 g in 50 ml IV UD Diphenhydramine HCl 25 mg [Benadryl 25 mg Capsule Med 02/10/19 10:17 Active ] 25 mg PO DAILY PRN PRN Levalbuterol HCl 1.25 MG/0.5M* [Xopenex 1.25 MG/0.5 ML Med 02/10/19 11:15 Discontinued UD NEBULE] 1.25 mg IH .STK-MED ONE Levalbuterol HCl 1.25 MG/0.5M* [Xopenex 1.25 MG/0.5 ML Med 02/10/19 11:00 Active UD NEBULE] 1.25 mg IH Q4HRT Methylprednis Sod Succ 125 mg* [solu-MEDROL 125 MG] Med 02/09/19 18:17 Discontinued 125 mg .ROUTE .STK-MED ONE Methylprednis Sod Succ 125 mg* [solu-MEDROL 125 MG] Med 02/09/19 18:00 Discontinued 125 mg IV STAT ONE Methylprednis Sod Succ 125 mg* [solu-MEDROL 125 MG] Med 02/09/19 21:28 Discontinued 80 mg IV Q6H Methylprednis Sod Succ 125 mg* [solu-MEDROL 125 MG] Med 02/09/19 23:55 Discontinued 80 mg IV Q6H Methylprednis Sod Succ 125 mg* [solu-MEDROL 125 MG] Med 02/10/19 00:00 Active 80 mg IV Q6H NaCl 0.9% 1000 ml [Sodium Chloride 0.9% 1000 ML] 1,000 Med 02/09/19 19:42 Discontinued ml .ROUTE UD NaCl 0.9% 1000 ml [Sodium Chloride 0.9% 1000 ML] 1,000 Med 02/09/19 19:30 Discontinued ml IV 100 mls/hr NaCl 0.9% 1000 ml [Sodium Chloride 0.9% 1000 ML] 1,000 Med 02/09/19 21:28 Discontinued ml IV 100 mls/hr NaCl 3Ml For Inhalation [Sodium Chloride 3 ML UD Med 02/10/19 11:15 Discontinued NEBULES] 3 ml IH .STK-MED ONE NaCl 3Ml For Inhalation [Sodium Chloride 3 ML UD Med 02/10/19 11:00 Active NEBULES] 3 ml IH Q4HRT Flutter Therapy UD RT 02/10/19 07:47 Active Oxygen Nasal Cannula 2 lpm RT 02/09/19 21:28 Active Peak Expiratory Flow Rate ONCE RT 02/10/19 07:00 Active Pulse Oximetry .continuos RT 02/09/19 21:28 Active RT Screen per Nursing Assess ONCE RT 02/09/19 21:51 Completed Respiratory Therapy Assessment DAILY RT 02/09/19 18:30 Completed Respiratory Therapy Assessment DAILY RT 02/09/19 23:06 Active Respiratory Therapy Consult ROUTINE RT 02/09/19 21:28 Completed Patient Care Notes (Last 24 hours) 02/10/19 11:40 Nursing Note by Dash Willett Pt on RA @ 93% HR @ 120. Pt up in chair. Denies any distress at this time. Initialized on 02/10/19 11:40 - END OF NOTE 02/10/19 03:23 Respiratory Note by Benji Schmidt CHECKED ON PT. SHE WAS AWAKE, LAYING IN BED AND PLAYING ON HER PHONE. SATS WERE 90% ON 4LPM. HR WAS 112. BS WERE CLEAR AND DIMINISHED. PT STATED SHE DID NOT FEEL SOB AT THIS TIME AND THAT SHE FELT FINE. PT KNOWS TO CALL FOR RT IF SHE STARTS FEELING SOB AGAIN. Initialized on 02/10/19 03:23 - END OF NOTE 02/10/19 01:49 Respiratory Note by Benji Schmidt NURSING CALLED TO STATE THAT PT SATS WERE DROPPING AGAIN INTO HIGH 80'S LOW 90' S. I ASKED THEM TO TURN PT UP FROM 3LPM TO 4LPM. I WENT DOWN W/ 2 DIFFERENT PULSE OX TO DETERMINE IF IT WAS A PROBE SITUATION AND TO SEE IF I WAS ABLE TO GET A CONSISTENT READING. BOTH PULSE OX (AND TELE) READ 92%-93%. PT WAS ASLEEP AND DID NOT APPEAR TO BE IN ANY DISTRESS. 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 PT HR HAS BEEN CONSISTENTLY HIGH IN THE 110'S-120'S. PT DOES TAKE ALB NEBS AND MDI NEEDED FOR ASTHMA. PT TOLD ME SHE HASN'T BEEN HOSPITALIZED FOR IT SINCE SHE WAS A KID. [facility] GIVEN PT 2 NEBS...ONE DUONEB IN ER AND ONE ALB ON THE FLOOR ABOUT 2 HOURS AGO. PT STATES SHE THINKS THEY HELP. PT JUST FOUND OUT WHILE IN ER THIS EVENING THAT SHE IS . Initialized on 02/10/19 01:49 - END OF NOTE - Vitals & Intake/Output Vital Signs: Vital Signs Temperature 98.4 F 02/10/19 11:47 Pulse Rate 127 H 02/10/19 11:47 Respiratory Rate 18 02/10/19 11:47 Blood Pressure 121/59 02/10/19 11:47 O2 Sat by Pulse Oximetry 95 02/10/19 11:47 Oxygen-Last Documented O2 Percentage 3 Liters = 32% Intake & Output: Intake & Output 02/08/19 02/09/19 02/10/19 02/11/19 11:59 11:59 11:59 11:59 Intake Total 1928 Output Total 800 Balance 1128 Weight 87.9 kg - Lab Result Diagrams: 02/10/19 05:40 02/10/19 05:40 Lab Results-Last 24 Hrs: Lab Results-Last 24 Hours 02/09/19 02/09/19 02/09/19 Range/Units 18:20 18:20 18:20 WBC 13.6 H (4.0-10.5) K/mm3 RBC 5.02 (4.1-5.4) M/mm3 Hgb 15.5 (12.0-16.0) gm/dl Hct 45.5 (35-47) % MCV 90.6 (78-100) fl MCH 30.9 (26-32) pg MCHC 34.1 (32-36) g/dl RDW 13.6 (11.5-14.0) % Plt Count 300 (150-450) K/mm3 MPV 10.0 H (6-9.5) fl Gran % 72.2 H (36.0-66.0) % Eos # (Auto) 0.55 H (0-0.5) Absolute Lymphs (auto) 2.16 (1.0-4.6) Absolute Monos (auto) 1.04 (0.0-1.3) Lymphocytes % 15.9 L (24.0-44.0) % Monocytes % 7.7 (0.0-12.0) % Eosinophils % 4.1 (0.00-5.0) % Basophils % 0.1 (0.0-0.4) % Absolute Granulocytes 9.81 H (1.4-6.9) Basophils # 0.02 (0-0.4) pO2/FiO2 Ratio % VBG pH (7.32-7.42) VBG pCO2 at Pat Temp (42-55) mm/Hg VBG pO2 at Pat Temp (25-40) mm/Hg VBG HCO3 (22-28) meq/L VBG O2 Sat ([place]) (95-100) VBG Base Excess (-2.0-2.0) VBG Hemoglobin VBG Carboxyhemoglobin (0.0-6.9) % T HGB POC Potassium (3.5-5.1) Sodium 141 (137-145) mmol/L Potassium 4.4 (3.5-5.1) mmol/L Chloride 103 (98-107) mmol/L Carbon Dioxide 25 (22-30) mmol/L Anion Gap 16.7 H (5-15) MEQ/L BUN 8 (7-17) mg/dL Creatinine 0.59 (0.52-1.04) mg/dL Estimated GFR > 60.0 ML/MIN Glucose 101 (74-106) mg/dL Calcium 9.6 (8.4-10.2) mg/dL Total Bilirubin 0.30 (0.2-1.3) mg/dL AST 27 (14-36) U/L ALT 35 (0-35) U/L Alkaline Phosphatase 90 (38-126) U/L Serum Total Protein 8.4 H (6.3-8.2) g/dL Albumin 4.4 (3.5-5.0) g/dL Serum , Qual POSITIVE (Negative) 02/09/19 02/10/19 02/10/19 Range/Units 18:25 05:40 05:40 WBC 20.6 H (4.0-10.5) K/mm3 RBC 4.74 (4.1-5.4) M/mm3 Hgb 14.6 (12.0-16.0) gm/dl Hct 43.0 (35-47) % MCV 90.7 (78-100) fl MCH 30.8 (26-32) pg MCHC 34.0 (32-36) g/dl RDW 13.6 (11.5-14.0) % Plt Count 326 (150-450) K/mm3 MPV 10.0 H (6-9.5) fl Gran % 92.9 H (36.0-66.0) % Eos # (Auto) 0.01 (0-0.5) Absolute Lymphs (auto) 1.17 (1.0-4.6) Absolute Monos (auto) 0.28 (0.0-1.3) Lymphocytes % 5.7 L (24.0-44.0) % Monocytes % 1.4 (0.0-12.0) % Eosinophils % 0.0 (0.00-5.0) % Basophils % 0.0 (0.0-0.4) % Absolute Granulocytes 19.15 H (1.4-6.9) Basophils # 0.01 (0-0.4) pO2/FiO2 Ratio 21.0 % VBG pH 7.40 (7.32-7.42) VBG pCO2 at Pat Temp 42 (42-55) mm/Hg VBG pO2 at Pat Temp 33 (25-40) mm/Hg VBG HCO3 26.0 (22-28) meq/L VBG O2 Sat ([place]) 64.0 L (95-100) VBG Base Excess 0.9 (-2.0-2.0) VBG Hemoglobin 15.7 VBG Carboxyhemoglobin 2.7 (0.0-6.9) % T HGB POC Potassium 4.3 (3.5-5.1) Sodium 139 (137-145) mmol/L Potassium 4.3 (3.5-5.1) mmol/L Chloride 108 H (98-107) mmol/L Carbon Dioxide 19 L (22-30) mmol/L Anion Gap 17.3 H (5-15) MEQ/L BUN 9 (7-17) mg/dL Creatinine 0.46 L (0.52-1.04) mg/dL Estimated GFR > 60.0 ML/MIN Glucose 177 H (74-106) mg/dL Calcium 9.5 (8.4-10.2) mg/dL Total Bilirubin 0.30 (0.2-1.3) mg/dL AST 28 (14-36) U/L ALT 39 H (0-35) U/L Alkaline Phosphatase 86 (38-126) U/L Serum Total Protein 8.0 (6.3-8.2) g/dL Albumin 4.2 (3.5-5.0) g/dL Serum , Qual (Negative) - Procedures and Test Procedures and Tests throughout Hospitalization: Therapy Orders & Screens 02/09/19 18:30 Respiratory Therapy Assessment DAILY Comment: 02/09/19 21:28 Oxygen Nasal Cannula 2 lpm Comment: Respiratory Therapy Consult ROUTINE Comment: Reason For Exam: 02/09/19 21:51 RT Screen per Nursing Assess ONCE Comment: Protocol Order Physician Instructions: Greater than 3 points order RT Admission Screen Reason For Exam: Triggered on Admission Diagnosis: asthma Diagnosis: asthma Pneumonia: No Home O2: No Asthma: Yes CHF: No Home CPAP/BIPAP: No Home Nebs/MDI: Yes Total Points: 9 02/09/19 23:06 Respiratory Therapy Assessment DAILY Comment: Diagnosis: asthma 02/10/19 07:00 Peak Expiratory Flow Rate ONCE Comment: Reason For Exam: Diagnosis: asthma 02/10/19 07:47 Flutter Therapy UD Comment: Diagnosis: asthma Discharge Exam General Appearance: no apparent distress, alert Neurologic Exam: alert, oriented x 3, cooperative, normal mood/affect, nml cerebellar function, sensation nml, No motor deficits Eye Exam: PERRL, EOMI, eyes nml inspection Ears, Nose, Throat Exam: normal ENT inspection, pharynx normal, moist mucous membranes Neck Exam: normal inspection, non-tender, supple, full range of motion Respiratory Exam: normal breath sounds, lungs clear, No respiratory distress Cardiovascular Exam: regular rate/rhythm, normal heart sounds Gastrointestinal/Abdomen Exam: soft, No tenderness, No mass Pelvic Exam: deferred Rectal Exam: deferred Back Exam: normal inspection, normal range of motion, No CVA tenderness, No vertebral tenderness Extremity Exam: normal inspection, normal range of motion Skin Exam: normal color, warm, dry Final Diagnosis/Problem List - Final Discharge Diagnosis/Problem (1) Asthma with exacerbation Current Visit: Yes Status: Resolved Assessment & Plan: Last Vital Signs Temp 98.4 F 02/10/19 11:47 Pulse 127 H 02/10/19 11:47 Resp 18 02/10/19 11:47 BP 121/59 02/10/19 11:47 Pulse Ox 95 02/10/19 11:47 Allergies No Known Drug Allergies Allergy (Verified 01/21/18 21:53) Active Medications Acetaminophen (Tylenol 325 Mg) 325 mg PO DAILY TEE Stop: 03/13/19 09:59 Albuterol Sulfate (Proventil 2.5 Mg/3 Ml Neb) 2.5 mg IH Q4H PRN PRN PRN Reason: SHORTNESS OF BREATH/WHEEZING Stop: 03/11/19 21:27 Last Admin: 02/10/19 04:56 Dose: 2.5 mg Albuterol Sulfate (Proventil Common Canister) 2 puff IH Q12H PRN PRN PRN Reason: ASTHMA Stop: 03/12/19 10:17 Diphenhydramine HCl (Benadryl 25 Mg Capsule) 25 mg PO DAILY PRN PRN PRN Reason: ALLERGIES Stop: 03/12/19 10:16 Ceftriaxone Sodium/Dextrose (Rocephin 1 Gm-D5w 50 Ml Bag) 1 g in 50 mls @ 100 mls/hr IV Q24H22 TEE Stop: 03/12/19 21:59 Azithromycin (Zithromax 500 Mg/ 250 Ml Nacl Premix) 500 mg in 250 mls @ 250 mls /hr IV Q24H22 TEE Stop: 03/12/19 21:59 Levalbuterol HCl (Xopenex 1.25 Mg/0.5 Ml Ud Nebule) 1.25 mg IH Q4HRT TEE Stop: 03/12/19 10:59 Last Admin: 02/10/19 11:15 Dose: 1.25 mg Methylprednisolone Sodium Succinate (Solu-Medrol 125 Mg) 80 mg IV Q6H TEE Stop: 03/12/19 00:00 Last Admin: 02/10/19 11:45 Dose: 80 mg Sodium Chloride (Sodium Chloride 3 Ml Ud Nebules) 3 ml IH Q4HRT TEE Stop: 03/12/19 10:59 Last Admin: 02/10/19 11:15 Dose: 3 ml Intake & Output 02/10/19 02/11/19 11:59 11:59 Intake Total 1928 Output Total 800 Balance 1128 Weight 87.9 kg Orders 02/10/19 09:25 Sputum Culture [CULTURE,SPUTUM] Routine 02/10/19 10:17 Diphenhydramine HCl 25 mg [Benadryl 25 mg Capsule] 25 mg PO DAILY PRN PRN 02/10/19 10:18 Albuterol Common Canister [Proventil Common Canister] 2 puff IH Q12H PRN PRN 02/10/19 11:00 Levalbuterol HCl 1.25 MG/0.5M* [Xopenex 1.25 MG/0.5 ML UD NEBULE] 1.25 mg IH Q4HRT NaCl 3Ml For Inhalation [Sodium Chloride 3 ML UD NEBULES] 3 ml IH Q4HRT 02/11/19 10:00 Acetaminophen 325 mg [Tylenol 325 mg] 325 mg PO DAILY Lab Tests 02/09/19 02/09/19 02/09/19 18:20 18:20 18:20 WBC 13.6 H RBC 5.02 Hgb 15.5 Hct 45.5 MCV 90.6 MCH 30.9 MCHC 34.1 RDW 13.6 Plt Count 300 MPV 10.0 H Gran % 72.2 H Eos # (Auto) 0.55 H Absolute Lymphs (auto) 2.16 Absolute Monos (auto) 1.04 Lymphocytes % 15.9 L Monocytes % 7.7 Eosinophils % 4.1 Basophils % 0.1 Absolute Granulocytes 9.81 H Basophils # 0.02 pO2/FiO2 Ratio VBG pH VBG pCO2 at Pat Temp VBG pO2 at Pat Temp VBG HCO3 VBG O2 Sat ([place]) VBG Base Excess VBG Hemoglobin VBG Carboxyhemoglobin POC Potassium Sodium 141 Potassium 4.4 Chloride 103 Carbon Dioxide 25 Anion Gap 16.7 H BUN 8 Creatinine 0.59 Estimated GFR > 60.0 Glucose 101 Calcium 9.6 Total Bilirubin 0.30 AST 27 ALT 35 Alkaline Phosphatase 90 Serum Total Protein 8.4 H Albumin 4.4 Serum , Qual POSITIVE 02/09/19 02/10/19 02/10/19 18:25 05:40 05:40 WBC 20.6 H RBC 4.74 Hgb 14.6 Hct 43.0 MCV 90.7 MCH 30.8 MCHC 34.0 RDW 13.6 Plt Count 326 MPV 10.0 H Gran % 92.9 H Eos # (Auto) 0.01 Absolute Lymphs (auto) 1.17 Absolute Monos (auto) 0.28 Lymphocytes % 5.7 L Monocytes % 1.4 Eosinophils % 0.0 Basophils % 0.0 Absolute Granulocytes 19.15 H Basophils # 0.01 pO2/FiO2 Ratio 21.0 VBG pH 7.40 VBG pCO2 at Pat Temp 42 VBG pO2 at Pat Temp 33 VBG HCO3 26.0 VBG O2 Sat ([place]) 64.0 L VBG Base Excess 0.9 VBG Hemoglobin 15.7 VBG Carboxyhemoglobin 2.7 POC Potassium 4.3 Sodium 139 Potassium 4.3 Chloride 108 H Carbon Dioxide 19 L Anion Gap 17.3 H BUN 9 Creatinine 0.46 L Estimated GFR > 60.0 Glucose 177 H Calcium 9.5 Total Bilirubin 0.30 AST 28 ALT 39 H Alkaline Phosphatase 86 Serum Total Protein 8.0 Albumin 4.2 Serum , Qual (2) Current Visit: Yes Status: Acute Code(s): Z34.90 - ENCNTR FOR SUPRVSN OF NORMAL , UNSP, UNSP TRIMESTER (3) Shortness of breath Current Visit: Yes Status: Resolved Code(s): R06.02 - SHORTNESS OF BREATH - Discharge Discharge Date: 02/10/19 Disposition: Home, Self-Care Condition: Stable Prescriptions: New Albuterol Common Canister [Proventil Common Canister] 2 puff IH Q12H PRN PRN #1 puff PRN Reason: ASTHMA Continue Diphenhydramine HCl [Benadryl Allergy] 1 tab PO DAILY PRN PRN Reason: Allergies Acetaminophen [Tylenol] 1 tab PO DAILY Discontinued Albuterol Sulfate [Ventolin Hfa] 2 inhaler PO Q12H PRN PRN PRN Reason: Asthma Follow up with: DOCTOR,NO FAMILY [Primary Care Provider] - 1 Week
[2019-02-10] MEDS ORDERED: ROCEPHIN 1 Gm-D5w 50 ml Bag** 1 G/50 ML IVPB IV SCH (22:00)
[2019-02-11] MEDS ORDERED: TYLENOL 325 MG PO SCH ×2 (10:00)
== END 2019-02-10 13:50 | disposition home or self-care (01) ==
LOC: ED 17:44 → INTOOBSV 21:08 → MED SURG 21:08
PROVIDERS: ADMIT General Practice; ATTEND General Practice
DX: O26.899 Other specified pregnancy related conditions, unspecified trimester (principal); J45.901 Unspecified asthma with (acute) exacerbation
CPT/HCPCS: 36000; 36415; 80053; 81025; 82805; 85025; 87070; 93268; 94150; 94640; 94667; 94668; 94762; 96360; 96361; 96374; 99285; G0378; J0456; J0696; J2930; J7609; A9270-GY